=== PATIENT | male | born 1960 | race African-American/Black ===

== ENCOUNTER 2024-11-27 05:55 | Inpatient (IN) | payer OTHER ==
[2024-11-27 05:59] VITALS: BMI 22.5
[2024-11-27 08:51] LABS: ABSOLUTE IMMATURE GRANULOCYTES 0.10 x10^3/uL (0.0-0.031); BASOPHILS # 0.09 x10^3/uL (0.01-0.08); EOSINOPHIL % 9.2 % (0.8-7.0); EOSINOPHILS # 1.60 x10^3/uL (0.04-0.54); MCHC 32.3 g/dl (32.3-36.5); MEAN CELL VOLUME 78.4 fl (79.0-92.2); MEAN PLT VOLUME 10.1 fl (9.4-12.4); MONOCYTE # 1.03 x10^3/uL (0.30-0.82); MONOCYTE % 5.9 % (5.3-12.2); RDW 13.2 % (12.2-16.4)
[2024-11-27] MEDS ORDERED: ACETAMINOPHEN INJECTION 100 ML ONE (08:51)
[2024-11-27 08:57] LABS: EPI CELLS 6 /uL (0-25.1); HYALINE CASTS 0 /uL (0-3.1); INR 1.24 (0.83-1.09); PROTHROMBIN TIME (PATIENT) 13.6 SEC (9.7-13.0); URINE APPEARANCE CLEAR; URINE BACTERIA 8 /uL (0-1359); URINE BILIRUBIN NEGATIVE (NEGATIVE); URINE COLOR YELLOW; URINE GLUCOSE (UA) NEGATIVE (NEGATIVE); URINE KETONE NEGATIVE (NEGATIVE); URINE LEUK ESTERASE 1+ (NEGATIVE); URINE NITRITE NEGATIVE (NEGATIVE); URINE PROTEIN 1+ (NEGATIVE); URINE RBC 537 /uL (0-23.9); URINE UROBILINOGEN 1.0 mg/dL (0.2-1.0); URINE WBC 62 /uL (0-25.8)
[2024-11-27] MEDS: ACETAMINOPHEN 1000 MG/100 ML BAG IVPB ONE (08:57)
[2024-11-27 09:00] LABS: ACTIVATED PTT 29.9 SECONDS (25.2-36.5)
[2024-11-27 09:06] LABS: INR 1.24 (0.83-1.09); PROTHROMBIN TIME (PATIENT) 13.6 SEC (9.7-13.0)
[2024-11-27 09:24] LABS: CO2 23.0 mmol/L (21-32); GLUCOSE,RANDOM 134.0 mg/dL (74-106)
[2024-11-27 09:27] LABS: CREATININE 0.8 mg/dL (0.55-1.3); SGOT/AST 21.0 U/L (15-37); SGPT/ALT 20.0 U/L (13-61)
[2024-11-27 09:29] LABS: TOT PROT 7.8 g/dl (6.4-8.2)
[2024-11-27 09:30] LABS: ALK PHOS 125.0 U/L (45-117)
[2024-11-27] MEDS: morphine CARPU-JECT 4 MG/1 ML DISP.SYRIN IVPUSH ONE (12:32)
[2024-11-27] MEDS ORDERED: NAPROXEN 500 MG TABLET ONE ×2 (13:39→20:54)
[2024-11-27] MEDS: NAPROXEN 250 MG TABLET PO SCH (13:43)
[2024-11-27] MEDS ORDERED: HYDROmorphone HCL CARPU-JECT 2 MG/1 ML DISP.SYRIN ONE (14:38)
[2024-11-27] MEDS ORDERED: ACETAMINOPHEN 500 MG TABLET (FP) ONE (14:41)
[2024-11-27] MEDS: HYDROmorphone HCL CARPU-JECT 2 MG/1 ML DISP.SYRIN IVPUSH PRN (14:47)
[2024-11-27] MEDS: ACETAMINOPHEN 500 MG TABLET (FP) PO PRN (14:47)
[2024-11-27] MEDS ORDERED: HEPARIN NA (PORCINE) 5,000 UNITS/ML 1ML VIAL ONE (20:54)
[2024-11-27] MEDS: HEPARIN NA (PORCINE) 5,000 UNITS/ML 1ML VIAL SQ SCH (21:01)
[2024-11-28 09:36] LABS: ABSOLUTE IMMATURE GRANULOCYTES 0.10 x10^3/uL (0.0-0.031); BASOPHILS # 0.13 x10^3/uL (0.01-0.08); EOSINOPHIL % 12.8 % (0.8-7.0); EOSINOPHILS # 2.22 x10^3/uL (0.04-0.54); MCHC 32.3 g/dl (32.3-36.5); MEAN CELL VOLUME 80.7 fl (79.0-92.2); MEAN PLT VOLUME 10.5 fl (9.4-12.4); MONOCYTE # 1.03 x10^3/uL (0.30-0.82); MONOCYTE % 5.9 % (5.3-12.2); RDW 13.4 % (12.2-16.4)
[2024-11-28 10:35] LABS: CO2 26.0 mmol/L (21-32); GLUCOSE,RANDOM 158.0 mg/dL (74-106)
[2024-11-28 10:38] LABS: CREATININE 0.9 mg/dL (0.55-1.3)
[2024-11-29 08:42] LABS: ABSOLUTE IMMATURE GRANULOCYTES 0.09 x10^3/uL (0.0-0.031); BASOPHILS # 0.11 x10^3/uL (0.01-0.08); EOSINOPHIL % 13.1 % (0.8-7.0); EOSINOPHILS # 2.40 x10^3/uL (0.04-0.54); MCHC 31.6 g/dl (32.3-36.5); MEAN CELL VOLUME 79.7 fl (79.0-92.2); MEAN PLT VOLUME 10.7 fl (9.4-12.4); MONOCYTE # 1.09 x10^3/uL (0.30-0.82); MONOCYTE % 6.0 % (5.3-12.2); RDW 13.3 % (12.2-16.4)
[2024-11-29 09:16] LABS: CO2 24.0 mmol/L (21-32); GLUCOSE,RANDOM 127.0 mg/dL (74-106)
[2024-11-29 09:18] LABS: CREATININE 0.6 mg/dL (0.55-1.3)
[2024-11-29] MEDS: LIDOCAINE 4% PATCH TP SCH (13:56)
[2024-11-29] MEDS: POLYETHYLENE GLYCOL (HEALTHYLAX) 3350 17 GM PACKET PO SCH (15:43)
[2024-11-29] MEDS: ACETAMINOPHEN 500 MG TABLET (FP) PO SCH (16:55)
[2024-11-29] MEDS: LIDOCAINE PATCH REMOVAL MC SCH (22:06)
[2024-11-30] MEDS: HYDROCHLOROTHIAZIDE 12.5 MG CAPSULE (FP) PO SCH (09:08)
[2024-11-30] MEDS: ENOXAPARIN NA (PORCINE) 40 MG/0.4 ML DISP.SYRIN SQ SCH (09:08)
[2024-11-30] MEDS: amLODIPine BESYLATE 10 MG TABLET (FP) PO SCH (09:08)
[2024-11-30 09:37] LABS: ABSOLUTE IMMATURE GRANULOCYTES 0.11 x10^3/uL (0.0-0.031); BASOPHILS # 0.10 x10^3/uL (0.01-0.08); EOSINOPHIL % 13.9 % (0.8-7.0); EOSINOPHILS # 2.54 x10^3/uL (0.04-0.54); MCHC 31.5 g/dl (32.3-36.5); MEAN CELL VOLUME 80.0 fl (79.0-92.2); MEAN PLT VOLUME 10.4 fl (9.4-12.4); MONOCYTE # 1.33 x10^3/uL (0.30-0.82); MONOCYTE % 7.3 % (5.3-12.2); RDW 13.5 % (12.2-16.4)
[2024-11-30 09:56] VITALS: BP 165/91; PULSE 106; RESP 17; TEMP 97.3
[2024-11-30 11:43] LABS: CO2 26.0 mmol/L (21-32)
[2024-11-30 11:46] LABS: CREATININE 0.8 mg/dL (0.55-1.3); GLUCOSE,RANDOM 191.0 mg/dL (74-106); SGOT/AST 28.0 U/L (15-37); SGPT/ALT 22.0 U/L (13-61)
[2024-11-30 11:47] LABS: TOT PROT 7.8 g/dl (6.4-8.2)
[2024-11-30 11:49] LABS: ALK PHOS 159.0 U/L (45-117)
== END 2024-11-30 14:51 | disposition home or self-care (01) | DRG 542 ==
LOC: JER 05:55 → JERBED 12:15 → J6S 21:47
PROVIDERS: ADMIT Internal Medicine; ATTEND Internal Medicine
DX: C79.51 Secondary malignant neoplasm of bone (principal); E43 Unspecified severe protein-calorie malnutrition; C64.9 Malignant neoplasm of unspecified kidney, except renal pelvis; C78.7 Secondary malignant neoplasm of liver and intrahepatic bile duct; R64 Cachexia; G95.9 Disease of spinal cord, unspecified; M54.50 Low back pain, unspecified; F17.210 Nicotine dependence, cigarettes, uncomplicated; K40.90 Unilateral inguinal hernia, without obstruction or gangrene, not specified as recurrent; Z68.22 Body mass index [BMI] 22.0-22.9, adult
CPT/HCPCS: 36415; 72148-TC; 74177-TC; 80048; 80053; 81003; 82378; 82962; 83605; 83735; 84100; 84153; 85025; 85610; 85730; 86301; 86850; 86900; 86901; 87086; 93005; 93010; 97116-GP; 97161-GP; 99285-25; Q9967